=== PATIENT | female | born 1990 | race Caucasian/White ===

== ENCOUNTER 2017-05-26 16:54 | Emergency (ER) | payer SELFPAY ==
[~2017-05-26] VITALS: Ht 162.6 cm; Wt 56.5 kg
[2017-05-26 17:10] VITALS: Ht 162.6 cm; Wt 56.5 kg
== END 2017-05-26 17:05 | disposition left against medical advice (07) ==
LOC: FTE 16:54
DX: Z53.21 Procedure and treatment not carried out due to patient leaving prior to being seen by health care provider (principal)

== ENCOUNTER 2018-05-04 22:40 | Emergency (ER) | END 2018-05-05 01:04 | disposition left against medical advice (07) ==